=== PATIENT | female | born 2000 | race Caucasian/White ===

== ENCOUNTER 2024-04-21 17:26 | Inpatient (IN) | payer OTHER, SELFPAY ==
[2024-04-21] VITALS (11 sets, daily range): BP systolic 80–118; BP diastolic 51–97; BMI 33.4
--- NOTE | 2024-04-21 13:48 | ED.GENMED ---
History of Present Illness
General
Chief Complaint: Seizure
Time Seen by Provider: 04/21/24 13:46
History of Present Illness
History of Present Illness:
23-year-old female history of seizures presenting status post seizure. Per EMS, patient was in the car with her mom when she started having a generalized tonic-clonic seizure. EMS states that patient sees the entire 12-minute ride to the hospital.
EMS states that they gave Versed 20 mg IM with no improvement. EMS states that patient is on Keppra and Lamictal. Patient had episode of urinary incontinence. EMS states that while patient was seizing, her eyes were closed but had nystagmus
bilaterally. History otherwise difficult to obtain secondary to postictal state. Parents at bedside who witnessed seizure states last tonic clonic seizure was February 18, last partial seizure was March 31. Parents took video which showed initial
left sided mouth/eye twitching that then became a generalized tonic clonic seizure. Parents state pt has been taking keppra and lamictal as prescribed.
Past History
Past History
ED Past Medical History: Seizures and Psychiatric (Autism, OCD, ADD)
ED Past Surgical History: Other
Social History
Tobacco: Non-smoker
Alcohol: None
Drug: None
Personal: Single
Living: with family
Employment: Other
Family History
Family History: Other
Phy Exam
Physical Exam
Physical Exam:
General: post ictal. moves all extremities equally. no active seizure
Head: NCAT.
Eyes: clear conjunctiva, pupils 3mm equal round reactive
Neck: supple
Cardiac: tachycardic, regular rhythm, no murmur
Lungs: clear to auscultation bilaterally. No wheezes, rales, or rhonchi. Speaking full unlabored sentences. No respiratory distress.
Abdomen: soft, nondistended nontender. No rebound or guarding.
MSK: no lower extremity edema bilaterally. No deformity
Skin: warm, dry
Neuro: post ictal, moves all extremities equally. not actively seizing
Course
Orders/Labs/Results
Orders:
Orders
04/21/24 13:46
CT Head W/o Iv Contrast Urgent
Comment:
Reason For Exam: seizure
, Urine Qualitative Screen [HCG, Urine Qualitative Screen] Urgent
Urine Drug Abuse Screen Urgent
Test Result ONCE
04/21/24 13:47
0.9% Sodium Chloride 1000 ml [Nss] 1,000 ml IV BOLUS
04/21/24 13:55
Alcohol Urgent
CBC/With Diff [Complete Blood Count/With Diff] Urgent
CMP [Comprehensive Metabolic Panel] Urgent
04/21/24 15:35
Ondansetron Injectable [Zofran] 4 mg IV NOW STA
04/21/24 15:41
Acetaminophen 1000MG/100Ml [Ofirmev] 1,000 mg in 100 ml .ROUTE .STK-MED
04/21/24 15:45
Acetaminophen 1000MG/100Ml [Ofirmev] 1,000 mg in 100 ml IV ONCE
04/21/24 16:11
Levetiracetam Injectable [Keppra] 1,000 mg IV NOW STA
Abnormal Lab Results
04/21/24
13:55
WBC 13.8 H 10^3/uL
(4.8-10.8)
Abs Immat Gran (auto) 0.1 H 10^3/uL
(0-0.05)
Absolute Neuts (auto) 8.0 H 10^3/uL
(1.4-6.5)
Absolute Lymphs (auto) 4.4 H 10^3/uL
(1.2-3.4)
Carbon Dioxide 18 L mmol/L
(22-30)
BUN 22 H mg/dl
(7-17)
Glucose 141 H mg/dl
(70-99)
Alkaline Phosphatase 36 L U/L
(38-126)
Total Protein 8.4 H g/dl
(6.3-8.2)
Albumin 5.3 H g/dl
(3.5-5.0)
04/21/24 13:55
04/21/24 13:55
Vital Signs
Initial and Last Documented VS:
Initial Vital Signs
Pulse Resp BP Pulse Ox
134 14 111/55 92
04/21/24 13:38 04/21/24 13:38 04/21/24 13:38 04/21/24 13:38
Last Documented Vital Signs
Pulse Resp BP Pulse Ox
76 20 118/76 97
04/21/24 15:52 04/21/24 15:52 04/21/24 15:52 04/21/24 15:52
MDM/Problems Addressed
Differential Diagnosis Includes:
seizure, hyponatremia, intracranial hemorrhage, mass
MDM/Problems Addressed:
23yoF hx seizures on keppra and lamictal presenting s/p seizure. Parents state seizure started as left eye/mouth twitching then became generalized grand mal seizure lasting 15 minutes. EMS arrived, gave Versed 20mg IM, continue to seizure for 12
minute ride to ER. On my initial evaluation, patient no actively seizing, post ictal, otherwise neurologically intact. Pt had episode of incontinence during seizure. Mother states patient has been taking keppra 500mg BID and Lamictal 150 BID as
prescribed, has not missed any doses. Last focal seizure at beginning of March, last grand mal in January. Follows up with neurology at [facility], but parents state would prefer for care to be here at [place].
On reevaluation, patient able to state name, but still does not know place or year. States has headache.
CT head unremarkable. Labs shows mild leukocytosis, electrolytes wnl.
On reevaluation again, patient alert and oriented x3, neurologically intact. Given prolonged seizure and post ictal phase, will admit. Discussed with neurology who recommended to increase Keppra to 1g BID, order placed. Discussed with hospitalist
for admission
*Critical Care Note
Total Time (30-74mins, 75-104mins- exclusive of procedures): Not Applicable
ED Attending Note
-
Portions of this chart may have been created with voice recognition software.� Occasional wrong word or��sound alike� substitutions may have occurred due to the inherent limitations of voice recognition software.
Discharge Plan
Departure
Patient Disposition: Admit
Date of Disposition: 04/21/24
Time of Disposition: 16:13
Presentation/result/management discussed w/ accepting MD/DO: Hospitalist
Discharge Problem:
Seizure
Prescriptions:
No Action
levetiracetam [Keppra] 500 mg tablet
500 mg PO BID Qty: 60 0RF
lamotrigine [Lamictal] 150 mg Tablet
150 mg PO BID
norethindrone-e.estradiol-iron [Junel FE 1.5/30 (28)] 1.5 mg-30 mcg (21)/75 mg (7) Tablet
1 tab PO HS
sertraline 100 mg Tablet
200 mg PO DAILY
hydroxyzine pamoate 50 mg Capsule
50 mg PO BID
hydroxyzine pamoate 50 mg Capsule
50 mg PO DAILYPRN PRN (Reason: anxiety)
clonidine HCl 0.2 mg Tablet
0.2 mg PO BID
aripiprazole 10 mg Tablet
10 mg PO HS
Referrals:
Zohreh Chris DO [Family Provider] -
Interventions
Interventions:
*Risk Screen - Suicide Last Done: 04/21/24 13:53
*General Assessment Last Done: 04/21/24 13:53
*Neglect/Abuse Screening Last Done: 04/21/24 13:53
*ED COVID-19 Vaccine History Last Done: 04/21/24 13:49
ED- Cardiac Assessment Last Done: 04/21/24 13:48
ED- Neurological Assessment Last Done: 04/21/24 15:51
ED- Pulmonary Assessment Last Done: 04/21/24 13:53
Discharge Date and Time
Print Language: SETSWANA
[2024-04-21] MEDS: NSS 1000 IV (13:52)
[2024-04-21 14:14] LABS: % Basophils 0.8 % (0-2); % Eosinophils 4.6 % (0-6); % Immature Granulocytes 0.5 % (0-0.5); % Lymphocytes 31.6 % (20.5-51.1); % Monocytes 4.6 % (1.7-9.3); % Neutrophils 57.9 % (42.2-75.2); Absolute Basophils 0.1 10^3/uL (0-0.2); Absolute Eosinophils 0.6 10^3/uL (0-0.7); Absolute Immature Granulocytes 0.1 10^3/uL (0-0.05); Absolute Lymphocytes 4.4 10^3/uL (1.2-3.4); Absolute Monocytes 0.6 10^3/uL (0.1-0.6); Hematocrit 40.7 % (37.0-47.0); Hemoglobin 13.7 g/dL (12.0-16.0); Mean Corp Hgb Conc. 33.7 g/dL (33.0-37.0); Mean Corpuscular Volume 83.2 fL (81.0-99.0); Mean Platelet Volume 9.1 fL (7.4-10.4); Nucleated Red Blood Cells % 0 %; Platelet Count 359 10^3/uL (130-400); Red Blood Cell Count 4.89 10^6/uL (4.20-5.40); Red Cell Dist. Width 12.7 % (11.5-14.5); White Blood Cell Count 13.8 10^3/uL (4.8-10.8)
[2024-04-21 14:29] LABS: ALT (SGPT) 24 U/L (0-35); AST (SGOT) 27 U/L (14-36); Albumin 5.3 g/dl (3.5-5.0); Alkaline Phosphatase 36 U/L (38-126); Blood Urea Nitrogen 22 mg/dl (7-17); Carbon Dioxide 18 mmol/L (22-30); Chloride 102 mmol/L (98-107); Glucose 141 mg/dl (70-99); Potassium 3.6 mmol/L (3.5-5.1); Sodium 141 mmol/L (135-145); Total Bilirubin 0.2 mg/dl (0.2-1.3); Total Protein 8.4 g/dl (6.3-8.2); eGFR > 60.00
[2024-04-21 14:31] LABS: Alcohol None Detected
[2024-04-21] MEDS: ZOFRAN 4 MG IV (15:42)
[2024-04-21] MEDS: OFIRMEV 100 IV (15:46)
[2024-04-21] MEDS: KEPPRA 1000 MG IV (16:15)
--- NOTE | 2024-04-21 16:16 | HPS.HSE ---
Family Physician
-
Family Physician: Zohreh Chris
Chief Complaint
-
seizure
History of Present Illness
23-year-old female history of seizures, bipolar, depression presented to us with generalized tonic-clonic seizure while she was in the car with her mom. Patient seized throughout the entire ride to the hospital. As per mom and lasted 15
minutes.Patient had episode of urinary incontinence. Parents at bedside who witnessed seizure states last tonic clonic seizure was February 18, last partial seizure was March 31. Parents state pt has been taking Keppra and Lamictal as prescribed.
Patient complaining of headache. Denies any dizziness. Patient denies any fever, chills, chest pain, short of breath. Patient denied any abdominal pain, nausea, vomiting, diarrhea. Patient denies dysuria hematuria.
Head CT with no acute findings. Patient received Keppra 1000 mg, Tylenol, Normal Saline, Zofran in ER. Admitting for further management
Medical History
Past Medical History
Past Medical History: Reports Other
Additional Past Medical History:
Bipolar
Seizure
Depression
Past Surgical History: Reports None
Social History
Tobacco: Other (weed)
Alcohol: Occasional
Drug: None
Personal: Single
Living: With Family
Family History
Family History: Not pertinent
Allergies / Home Medications
Allergies reflects when Allergies were last updated in [facility].
Home Medications with original date entered in [facility]
Allergy/Medication List:
Allergies
Allergy/AdvReac Type Severity Reaction Status Date / Time
No Known Allergies Allergy Verified 04/21/24 13:58
Home Medications
levetiracetam 500 mg tablet (Keppra) 500 mg PO BID #60 tabs 03/31/23
aripiprazole 10 mg tablet 10 mg PO HS 04/21/24
clonidine HCl 0.2 mg tablet 0.2 mg PO BID 04/21/24
hydroxyzine pamoate 50 mg capsule 50 mg PO BID 04/21/24
hydroxyzine pamoate 50 mg capsule 50 mg PO DAILYPRN PRN anxiety 04/21/24
lamotrigine 150 mg tablet (Lamictal) 150 mg PO BID 04/21/24
norethindrone 1.5 mg-ethinyl estradiol 30 mcg(21)/iron 75 mg(7) tablet (Junel FE 1.5/30 (28)) 1 tab PO HS 04/21/24
sertraline 100 mg tablet 200 mg PO DAILY 04/21/24
Review of Systems
-
Constitutional: Reports No Symptoms
EENT: Reports No Symptoms
Respiratory: Reports No Symptoms
Cardiac: Reports No Symptoms
Abdomen/GI: Reports No Symptoms
: Reports No Symptoms
Musculoskeletal: Reports No Symptoms
Skin: Reports No Symptoms
Neurological: Reports Headache
Endocrine: Reports No Symptoms
Hematologic/Lymphatic: Reports No Symptoms
Psych: Reports No Symptoms
Physical Exam
Vital Signs
Vital Signs
Pulse Resp BP Pulse Ox
76 20 118/76 97
04/21/24 15:52 04/21/24 15:52 04/21/24 15:52 04/21/24 15:52
Physical Exam
General: Well Developed, Well Nourished and No Apparent Distress
HEENT: NormoCephalic, Moist mucous membranes and Atraumatic
Respiratory: Clear
Cardiac: S1/S2 and Regular Rhythm; No Murmur or Rub
GI: Soft, Non Tender, Non Distended and Normal Bowel Sounds; No Organomegaly
Rectal: Deferred by Provider
Musculoskeletal: No Clubbing, No Cyanosis and No Edema
Skin: No Rash
Neuro: AO x 3 and Nonfocal/grossly intact
Psych: Calm
Laboratory Results
-
04/21/24 13:55
04/21/24 13:55
Laboratory Results
Total Bilirubin 0.2 mg/dl (0.2-1.3) 04/21/24 13:55
AST 27 U/L (14-36) 04/21/24 13:55
ALT 24 U/L (0-35) 04/21/24 13:55
Alkaline Phosphatase 36 U/L (38-126) L 04/21/24 13:55
Data Reviewed
-
CT Scan: Report Reviewed by me
Lab Data: Labs Reviewed by me
Impression/Plan
-
# Prolonged seizure
-Keppra 1gram bid
-Lamictal continued
-CT head negative
-seizure precaution
-neurology consulted
# Leukocytosis likely stress related reaction
-WBC 13.8
-Patient is afebrile
-Continue to monitor
# History of depression/bipolar
-Abilify, clonidine, hydroxyzine and sertraline continued
# DVT prophylaxis
-SCD
# CODE STATUS
-Full code
--- NOTE | 2024-04-21 16:19 | W.PN.UPDATE ---
Update Note
Progress Note Update
This is an addendum to H&P written by PHOTOVOLTAIC INSTALLATION TECHNICIAN Fauzia Martinez
I saw and examined the patient.
The PHOTOVOLTAIC INSTALLATION TECHNICIAN's note was reviewed and I agree with the note.
Comment:
Ms. Maria C Craft is a 23 yo woman with history of Epilepsy on Keppra and Lamictal presents after a long witnessed seizure in the back of the car with her parents.
Triage VS: P 134 down to 76, RR 14, BP 111/55, SpO2 92%
On exam patient is somnolent, arousable to voice. AAO x 3; no focal deficits, lungs clear. complains of headache.
LABS: WBC 13.8, Hg 13.7, PLT 359, Na 141, K+ 3.6, CO2 18, BUN 22, Cr 0.9, Glucose 141, T. Bili 0.2, AST 27, ALT 24, Alk Phos [address]
IMPRESSION:
1. Normal head CT.
2. No significant change compared to prior study.
Seizure
-admit to telemetry
-discussed with neurology here and HOTEL DIRECTOR Keppra increased to 1G BID
-continue HOTEL DIRECTOR Lamictal
-seizure precautions
-formal neurology consult
-IV Toradol for OLIVIER; PRN tylenol
[2024-04-21] MEDS: TORADOL 15 MG IV (17:02)
[2024-04-21 18:13] LABS: HCG, Serum Qualitative Screen Negative
[2024-04-21] MEDS: ABILIFY 10 MG PO (21:06)
[2024-04-21] MEDS: LAMICTAL 150 MG PO (21:07)
[2024-04-21] MEDS: CATAPRES 0.2 MG PO (21:08)
[2024-04-21] MEDS: TYLENOL 650 MG PO (21:09)
[2024-04-21] MEDS: ATARAX 50 MG PO (21:09)
--- NOTE | 2024-04-21 23:24 | PTCARENOTE ---
Pt arrived on unit from ED via stretcher at approximately 2000. Pt able to ambulate with assistance into room. Pt accompanied by mother. Pt AOx3, VSS. Oriented to unit and call cobos within reach.
--- NOTE | 2024-04-21 23:27 | PTCARENOTE ---
Pt ordered seizure precautions. ob scrub tech states pads that pt was transferred with are not allowed to stay with pt. This RN reached out to each floor for seizure pads but not available. Nurse supervisor long goods made aware. Blankets placed on bed rails as
substitute until pads become available. Suction set up in room.
[2024-04-22 03:20] VITALS: BP 128/71
[2024-04-22] MEDS: OCEAN, SALINE MIST 1 SPRAYS NASAL (03:33)
[2024-04-22] MEDS: TORADOL 15 MG IV (03:34)
[2024-04-22 06:35] LABS: Hematocrit 37.4 % (37.0-47.0); Hemoglobin 12.7 g/dL (12.0-16.0); Mean Corpuscular Volume 85.4 fL (81.0-99.0); Mean Platelet Volume 9.3 fL (7.4-10.4); Platelet Count 283 10^3/uL (130-400); Red Blood Cell Count 4.38 10^6/uL (4.20-5.40); Red Cell Dist. Width 12.5 % (11.5-14.5); White Blood Cell Count 10.7 10^3/uL (4.8-10.8)
[2024-04-22 07:05] LABS: Blood Urea Nitrogen 19 mg/dl (7-17); Calcium 9.3 mg/dl (8.4-10.2); Carbon Dioxide 24 mmol/L (22-30); Chloride 104 mmol/L (98-107); Estimated Creatinine Clearance 118 ml/min; Glucose 109 mg/dl (70-99); Potassium 4.3 mmol/L (3.5-5.1); Sodium 140 mmol/L (135-145); eGFR > 60.00
[2024-04-22 07:49] VITALS: BP 121/71
[2024-04-22] MEDS: KEPPRA 1000 MG PO (08:39)
[2024-04-22] MEDS: ATARAX 50 MG PO (08:40)
[2024-04-22] MEDS: CATAPRES 0.2 MG PO (08:40)
[2024-04-22] MEDS: LAMICTAL 200 MG PO (08:43)
[2024-04-22] MEDS: ZOLOFT 200 MG PO (08:43)
[2024-04-22 11:00] VITALS: BP 121/67
--- NOTE | 2024-04-22 12:38 | W.PN.HOSP.TC ---
Addendum entered and electronically signed by Mike Perez MD 04/23/24 16:54:
[id number]
Original Note:
Today's Communication/Plan
-
-Increase to Keppra 1gram bid
-Lamictal increased to 200mg BID
neuro, pcp outpatient f/u
cbc outpatient
Assessment / Plan
Assessment / Plan
Physical Exam
General: Well Developed, Well Nourished and No Apparent Distress
HEENT: NormoCephalic, Moist mucous membranes and Atraumatic
Respiratory: Clear
Cardiac: S1/S2 and Regular Rhythm; No Murmur or Rub
GI: Soft, Non Tender, Non Distended and Normal Bowel Sounds; No Organomegaly
Rectal: Deferred by Provider
Musculoskeletal: No Clubbing, No Cyanosis and No Edema
Skin: No Rash
Neuro: AO x 3 and Nonfocal/grossly intact
Psych: Calm
# Prolonged seizure
-Increase to Keppra 1gram bid
-Lamictal increased to 200mg BID
-CT head negative
-seizure precaution
-neurology f/u outpatient. has appt on 04/26 already
# Leukocytosis likely stress related reaction
-trending down
-most likely reactive
-f/u [facility] outpatient
# History of depression/bipolar
-Abilify, clonidine, hydroxyzine and sertraline continued
# DVT prophylaxis
-SCD
# CODE STATUS
-Full code
More than 30 minutes spent in discharge including
Final examination of the patient
Summarizing hospital stay
Instructions for continuing care to all relevant caregivers
Preparation of discharge records, prescriptions, and referral forms
Total time spent (35 in minutes):
Anticipated Discharge: Today
Subjective/Interval History
-
Date of Service: April 22, 2024
mild headache - improving; no more seizures
Objective Data
-
Labs:
Laboratory Results
04/22/24
05:27
WBC 10.7
Hgb 12.7
Hct 37.4
Plt Count 283 D
Sodium 140
Potassium 4.3
Chloride 104
Carbon Dioxide 24
BUN 19 H
Creatinine 0.8
Glucose 109 H
Calcium 9.3
Vital Signs:
Vital Signs
Temp Pulse Resp BP Pulse Ox
97.7 F 87 17 121/67 100
04/22/24 11:00 04/22/24 11:00 04/22/24 11:00 04/22/24 11:00 04/22/24 11:00
I&O
04/21/24 04/22/24 04/23/24
06:59 06:59 06:59
Intake Total 720 / 720
Balance 720 / 720
Review of Systems
-
History Source: Patient
All other systems: Not reviewed unless documented
Data Reviewed
-
CT Scan: Image personally visualized and interpreted and Report Reviewed by me
Labs: Labs Reviewed by me
--- NOTE | 2024-04-22 12:51 | W.DS.TRANS ---
DC Summary - Supervisor Modern Languages
-
Discharge Instructions:
Discharge Diagnosis/Procedures # Prolonged seizure
Activity As tolerated
Additional Activity with supervision
Driving Restrictions Not until seen by your Dr
Instructions:
Stand-Alone Forms:
Changes to Home Medications: Yes
Discharge Medications:
DC Medications w/original date entered in [employer]
aripiprazole 10 mg tablet 10 mg PO HS bipolar disorder 04/21/24
clonidine HCl 0.2 mg tablet 0.2 mg PO BID bipolar disorder/anxiety 04/21/24
hydroxyzine pamoate 50 mg capsule 50 mg PO BID anxiety 04/21/24
hydroxyzine pamoate 50 mg capsule 50 mg PO DAILYPRN PRN anxiety 04/21/24
norethindrone 1.5 mg-ethinyl estradiol 30 mcg(21)/iron 75 mg(7) tablet (Junel FE 1.5/30 (28)) 1 tab PO HS Hormonal Agent 04/21/24
sertraline 100 mg tablet 200 mg PO DAILY depression/anxiety 04/21/24
acetaminophen 325 mg tablet 650 mg (2 x 325 mg) PO Q4HPRN PRN mild pain/OLIVIER/temp> 100.4F #90 tabs 04/22/24
lamotrigine 100 mg tablet 200 mg (2 x 100 mg) PO BID 30 days #120 tabs 04/22/24
levetiracetam 500 mg tablet 1,000 mg (2 x 500 mg) PO BID 30 days #120 tabs 04/22/24
Home Medication Changes
acetaminophen 325 mg tablet 650 mg (2 x 325 mg) PO Q4HPRN PRN mild pain/OLIVIER/temp> 100.4F #90 tabs 04/22/24
lamotrigine 100 mg tablet 200 mg (2 x 100 mg) PO BID 30 days #120 tabs 04/22/24
levetiracetam 500 mg tablet 1,000 mg (2 x 500 mg) PO BID 30 days #120 tabs 04/22/24
Pending Results: No
--- NOTE | 2024-04-22 13:11 | CM ---
Patient was discharged to home today
Centrifugal Wax Molder was unable to meet and assess discharge needs before she left the hospital
[2024-04-24 02:55] LABS: Lamotrigine (Lamictal) 2.9 ug/mL (3.0-15.0)
== END 2024-04-22 13:11 | disposition home or self-care (01) | DRG 101 ==
LOC: 3 WEST ACU 17:26
PROVIDERS: Psychiatry & Neurology Neurology; Registered Nurse; ADMITTING PHYSICIAN Student in an Organized Health Care Education/Training Program; ATTENDING PHYSICIAN Internal Medicine; EMERGENCY PHYSICIAN Emergency Medicine; FAMILY PHYSICIAN Family Medicine
DX: G40.909 Epilepsy, unspecified, not intractable, without status epilepticus (principal); F84.0 Autistic disorder; F31.9 Bipolar disorder, unspecified; D72.829 Elevated white blood cell count, unspecified; F42.9 Obsessive-compulsive disorder, unspecified; F90.9 Attention-deficit hyperactivity disorder, unspecified type; H55.00 Unspecified nystagmus; Z79.899 Other long term (current) drug therapy
CPT/HCPCS: 70450; 80048; 80053; 80175; 82077; 84703; 85025; 85027; 96361; 96374; 96375; 99285

== ENCOUNTER 2024-11-07 15:46 | Emergency (ER) | payer OTHER, SELFPAY ==
[2024-11-07 15:53] VITALS: BP 140/92
[2024-11-07] MEDS: DUONEB 3 ML INH (16:05)
[2024-11-07 16:18] LABS: % Basophils 0.5 % (0-2); % Eosinophils 7.9 % (0-6); % Immature Granulocytes 0.1 % (0-0.5); % Lymphocytes 29.8 % (20.5-51.1); % Neutrophils 56.7 % (42.2-75.2); Absolute Basophils 0.1 10^3/uL (0-0.2); Absolute Eosinophils 0.8 10^3/uL (0-0.7); Absolute Monocytes 0.5 10^3/uL (0.1-0.6); Absolute Neutrophils 5.8 10^3/uL (1.4-6.5); Mean Corpuscular Hgb 29.3 pg (27.0-31.0); Mean Corpuscular Volume 83.7 fL (81.0-99.0); Mean Platelet Volume 8.7 fL (7.4-10.4); Nucleated Red Blood Cells % 0 %; Platelet Count 302 10^3/uL (130-400); Red Blood Cell Count 4.78 10^6/uL (4.20-5.40); Red Cell Dist. Width 12.3 % (11.5-14.5); White Blood Cell Count 10.2 10^3/uL (4.8-10.8)
[2024-11-07 16:31] LABS: Blood Urea Nitrogen 25 mg/dl (7-17); Calcium 9.7 mg/dl (8.4-10.2); Carbon Dioxide 27 mmol/L (22-30); Chloride 108 mmol/L (98-107); Glucose 127 mg/dl (70-99); Sodium 141 mmol/L (135-145); eGFR > 60.00
[2024-11-07 16:48] LABS: COVID-19 Antigen Negative (Negative)
[2024-11-07 20:59] VITALS: BP 105/48
[2024-11-07 21:16] LABS: HCG, Serum Qualitative Screen Negative
[2024-11-07] MEDS: TORADOL 15 MG IV (21:29)
[2024-11-07 21:39] LABS: D-Dimer < 0.27 ug/mlFEU (0.00-0.50)
--- NOTE | 2024-11-07 23:39 | ED.GENMED ---
History of Present Illness
General
Chief Complaint: Breathing Problem
Source: patient and family (father at bedside)
Exam Limitations: none
Time Seen by Provider: 11/07/24 20:25
Nursing documentation reviewed up to this point in time: agreed with
History of Present Illness
History of Present Illness:
The patient is a 24 year-old female presenting to the emergency department with father for evaluation of chest tightness and shortness of breath. Patient states symptoms started earlier today as she was finishing up cleaning her house. She describes
a tightness in her mid chest as well as shortness of breath.
No true exertional or pleuritic component to symptoms.
Patient denies any fever or chills. No productive cough. No lower leg swelling or pain. No rash or known allergens.
No recent travel or recent surgery.
Patient has no known history of asthma.
Past History
Past History
ED Past Medical History: Seizures and Psychiatric (Autism, OCD, ADD)
ED Past Surgical History: Other
Social History
Tobacco: Non-smoker
Alcohol: None
Drug: None
Personal: Single
Living: with family
Employment: Other
Family History
Family History: Other
Review of Systems
Review of Systems
Allergies reviewed?: Yes
All Other Systems: ROS reviewed and negative except as documented in HPI and ROS
Phy Exam
Physical Exam
Physical Exam:
Vitals: Mildly tachycardic, otherwise vital signs stable. Afebrile
General: Patient is well appearing, no acute distress. Nontoxic appearing
Skin: Warm and dry, no rashes or lesions
Head: Normocephalic, atraumatic
Eyes: Sclera nonicteric.
Throat: Protecting airway
Neck: Normal ROM, no cervical spine tenderness, no meningismus
Cardiac: Mildly tachycardic, normal heart sounds. No murmurs.
Pulm: No apparent respiratory distress. Lungs clear bilaterally on my examination without wheeze.
.
Abdomen: No abdominal tenderness.
Extremities: No evidence of cyanosis or edema. Palpable DP pulses bilaterally.
Neuro: AAOx3. Grossly intact.
Psychiatric: Normal affect.
Course
Orders/Labs/Results
Orders:
Orders
11/07/24 15:53
ECG [Electrocardiogram (*1)] Urgent
Reason for Study: Chest Pain
EKG- Treatment ONCE
Chest [CR Chest - 2 Views ] Urgent
Comment:
Reason For Exam: cough, SOB
11/07/24 16:04
Ipratropium/Albuterol Sulfate [Duoneb] 3 ml INH R NOW ONE
11/07/24 16:08
Basic Metabolic Panel Urgent
COVID-19 Antigen Urgent
Source: Nasal Swab
Complete Blood Count/With Diff Urgent
Influenza A+B Rapid Molecular Urgent
YAIMA Source: Nasal Swab
Specimen Description:
11/07/24 20:38
Ketorolac [Toradol] 15 mg IV NOW STA
11/07/24 20:39
Add On- LAB Urgent
Tests Added?: serum hcg
11/07/24 20:51
D-Dimer Urgent
HCG, Serum Qualitative Screen Urgent
Abnormal Lab Results
11/07/24
16:08
Absolute Eos (auto) 0.8 H 10^3/uL
(0-0.7)
Eosinophils % 7.9 H %
(0-6)
Chloride 108 H mmol/L
(98-107)
BUN 25 H mg/dl
(7-17)
Glucose 127 H mg/dl
(70-99)
11/07/24 16:08
11/07/24 16:08
Vital Signs
Initial and Last Documented VS:
Initial Vital Signs
Temp Pulse Resp Pulse Ox
97.8 F 105 20 94
11/07/24 15:49 11/07/24 15:49 11/07/24 15:49 11/07/24 15:49
Last Documented Vital Signs
Temp Pulse Resp BP Pulse Ox
97.8 F 70 18 105/48 99
11/07/24 15:49 11/07/24 20:59 11/07/24 20:59 11/07/24 20:59 11/07/24 20:59
MDM/Problems Addressed
Differential Diagnosis Includes:
Not limited to: viral illness, bronchospasm, bronchitis, muscle stain, pleurisy, pulmonary embolism, etc
MDM/Problems Addressed:
24 year-old female with chest tightness and shortness of breath after cleaning house today. No fever, productive cough, or lower extremity edema. Vitals stable by my assessment. Physical exam as above. Patient very well appearing, in no apparent
respiratory distress. Heart sounds regular. Lungs are clear bilaterally without wheezing or rales. No clinical evidence of DVT on exam. Apparently � patient was wheezing on arrival to ED. She received a duoneb in triage prior to my assessment w/
improvement in symptoms.
Labs reviewed. No significant abnormalities. EKG not ischemic. Chest x-ray without acute findings.
Overall, impression is likely bronchospasm possibly secondary to allergen while cleaning house. Lower suspicion for infectious process and she has no other URI symptoms. Do not suspect ACS. Very low suspicion for pulmonary embolism although given
patients tachycardia on arrival to ED as well as OCP � will check D dimmer.
Update: D- dimer negative. Patient remains asymptomatic and is resting comfortably in room. Vital signs have normalized. At this point � feel stable for discharge home with primary care f/u. Will send patient albuterol inhaler to have as needed.
Return precautions discussed. Patient and patients father comfortable with plan.
Chronic conditions affecting care:
N/A
Acute Exacerbation and/or Progression of Chronic Illness:
N/A
*Radiology
Radiology exam reviewed: preliminary read by ED provider (CXR reviewed by me- no acute abnormalities) and radiology read reviewed
*Pulse Oximetry
Patient hypoxic: no
*EKG
Interpreted by ED Provider?: Yes
EKG Intrepretation Date: 11/07/24
Interpretation: normal
Comparison EKG: no changes
Heart Rate: 94
Rate: normal
Rhythm: sinus
[place]: normal axis
Interval: normal QT interval
QRS Pattern: normal QRS
Ischemia: no ischemia
*Die Engraver Interpretation
Rate: Die Engraver- N/A
*Critical Care Note
Total Time (30-74mins, 75-104mins- exclusive of procedures): Not Applicable
ED Attending Note
-
Portions of this chart may have been created with voice recognition software.� Occasional wrong word or��sound alike� substitutions may have occurred due to the inherent limitations of voice recognition software.
Discharge Plan
Departure
Patient Disposition: Home (Routine Discharge)
Date of Disposition: 11/07/24
Time of Disposition: 22:23
Patient with high blood pressure during this ER visit?: Yes
Condition: Good
Covid-19: Negative COVID-19
Discharge Problem:
Shortness of breath
Instructions: Wheezing in adults - ED discharge instructions, Shortness of breath in adults - ED discharge instructions
Prescriptions:
New
albuterol sulfate 90 mcg/actuation HFA aerosol inhaler
2 puff inhalation Q6H PRN (Reason: shortness of breath or wheezing) Qty: 8.5 0RF
No Action
norethindrone-e.estradiol-iron [ FE 1.5/30 (28)] 1.5 mg-30 mcg (21)/75 mg (7) Tablet
1 tab PO HS
sertraline 100 mg Tablet
200 mg PO DAILY
hydroxyzine pamoate 50 mg Capsule
50 mg PO BID
hydroxyzine pamoate 50 mg Capsule
50 mg PO DAILYPRN PRN (Reason: anxiety)
clonidine HCl 0.2 mg Tablet
0.2 mg PO BID
aripiprazole 10 mg Tablet
10 mg PO HS
acetaminophen 325 mg Tablet
650 mg PO Q4HPRN PRN (Reason: mild pain/OLIVIER/temp> 100.4F) Qty: 90 0RF
levetiracetam 500 mg Tablet
1,000 mg PO BID 30 Days Qty: 120 0RF
lamotrigine 100 mg Tablet
200 mg PO BID 30 Days Qty: 120 0RF
Referrals:
Zohreh Chris DO [Family Provider] - Follow up in 5-7 days
Activity Restrictions/Additional Instructions:
RETURN TO THE EMERGENCY DEPARTMENT WITH ANY CHEST PAIN, SHORTNESS OF BREATH/DIFFICULTY BREATHING, HIGH FEVERS, SEVERE ABDOMINAL PAIN, WORSENING IN CURRENT SYMPTOMS, OR ANY OTHER CONCERNS
- As discussed�your lab work and chest x-ray in the emergency department showed no acute abnormalities. You were given a breathing treatment in the emergency department.
- We are unsure the exact cause of your shortness of breath today however may be related to an allergen. I have sent a prescription for an inhaler that you can have at home as needed for any future episodes of shortness of breath/wheezing.
- Follow-up with your primary care for further evaluation/management to ensure that symptoms are improving
Monitor your symptoms closely and return to the emergency department with any acute worsening/new symptoms or any other concerns
Interventions
Interventions:
*Risk Screen - Suicide Last Done: 11/07/24 15:49
*General Assessment Last Done: 11/07/24 15:49
*Neglect/Abuse Screening Last Done: 11/07/24 20:57
*ED- Fall Risk Assessment Last Done: 11/07/24 20:57
*ED COVID-19 Vaccine History Last Done: 11/07/24 20:57
*Nursing Disposition Last Done: 11/07/24 22:41
ED- Pulmonary Assessment Last Done: 11/07/24 20:58
Discharge Date and Time
Discharge Date/Time: 11/07/24 22:42
Print Language: CENTRAL AFRICAN
== END 2024-11-07 22:42 | disposition home or self-care (01) ==
LOC: EMR 15:46
PROVIDERS: Emergency Medicine; Physician Assistant; EMERGENCY PHYSICIAN Emergency Medicine; FAMILY PHYSICIAN Family Medicine
DX: R06.02 Shortness of breath (principal); R07.89 Other chest pain; Z11.52 Encounter for screening for COVID-19; R03.0 Elevated blood-pressure reading, without diagnosis of hypertension; F84.0 Autistic disorder; F42.9 Obsessive-compulsive disorder, unspecified; F90.9 Attention-deficit hyperactivity disorder, unspecified type; R56.9 Unspecified convulsions; G43.909 Migraine, unspecified, not intractable, without status migrainosus; F31.9 Bipolar disorder, unspecified; F32.A Depression, unspecified
CPT/HCPCS: 99284; 96374; 94640; 71046; 80048; 84703; 85025; 85379; 87502; 87811; 93005